=== PATIENT | female | born 1995 | race Caucasian/White ===

== ENCOUNTER 2018-09-03 19:23 | Outpatient (REF) | payer MEDICAID, SELFPAY ==
--- NOTE | 2018-09-03 | PAPFT_PTH ---
PATIENT: HILL LOVING LOC: [facility] U#:[id number] AGE/SX: 23/F ROOM: RE09/03/[address]: Waleska Diaz : 1995 BED: DIS: 09/03/2018 SPEC #: [id number] RECD: 09/04/18 13:03 STATUS: LESLIE GIRARD #: [id number] BRE: 09/03/18 00:[address]: Waleska Diaz DEPT: [facility] Cytology RECD BY: Petty Bateman ENTERED: 09/04/18 13:03 SP TYPE: PAPFT LÁZARO DR: No Local Tissues: 1 - CX/ENDOCX FOR PAP SMEARS Procedures: PAP THIN PREP/[facility] Screening Comments: [id number]
== END 2018-09-03 19:43 ==
LOC: LBN 19:23
PROVIDERS: Visit Provider Physician Assistant
DX: Z12.4 Encounter for screening for malignant neoplasm of cervix (principal)
CPT/HCPCS: 88142

== ENCOUNTER 2018-09-14 13:01 | Outpatient (CLI) | payer MEDICAID, SELFPAY ==
[2018-09-14 13:41] LABS: Hemoglobin A1C 5.7 % (4.5-6.2)
[2018-09-14 14:20] LABS: Anion Gap 10.8 mmol/L (3-11); BUN 11 mg/dL (7-18); CO2 27.2 mmol/L (21.0-32.0); CREATININE 0.82 mg/dL (0.55-1.02); Calcium 9.5 mg/dL (8.5-10.1); Chloride 103 mmol/L (98-107); Cholesterol 153 mg/dL (50-200); Glucose 83 mg/dL (70-100); HDL Cholesterol 43 mg/dL (40-60); LDL CHOLESTEROL 95 mg/dL (<100); Potassium 4.7 mmol/L (3.5-5.1); Sodium 141 mmol/L (136-145); Triglyceride 116 mg/dL (30-150)
== END 2018-09-14 13:21 ==
PROVIDERS: Visit Provider Physician Assistant
DX: E28.2 Polycystic ovarian syndrome (principal); Z68.41 Body mass index [BMI] 40.0-44.9, adult
CPT/HCPCS: 36415; 80048; 80061; 83721; 83036